=== PATIENT | male | born 1960 | race Caucasian/White ===

== ENCOUNTER 2017-10-23 16:03 | Emergency (ER) | payer OTHER ==
[~2017-10-23] VITALS: Ht 175.3 cm; Wt 82.5 kg
[2017-10-23 16:17] VITALS: Ht 175.3 cm; Wt 82.5 kg
[2017-10-23 20:11] VITALS: BP 174/89
== END 2017-10-23 20:11 | disposition home or self-care (01) ==
LOC: ED 16:03
DX: L02.413 Cutaneous abscess of right upper limb (principal); I10 Essential (primary) hypertension
CPT/HCPCS: J3010; J3490; Q0162

== ENCOUNTER 2019-01-23 15:56 | Emergency (ER) | payer OTHER ==
[~2019-01-23] VITALS: Ht 175.3 cm; Wt 84.8 kg
[2019-01-23 16:13] VITALS: Ht 175.3 cm; Wt 84.8 kg
[2019-01-23 18:09] LABS: BASOPHIL % 0.8 % (0-2)
[2019-01-23 18:12] LABS: PLATELET COUNT 101 x10^3mcL (130-400)
[2019-01-23 18:17] LABS: CARBON DIOXIDE 27.1 mmol/L (21-32); CHLORIDE SERUM 99 mmol/L (98-107); CREATININE SERUM 0.6 mg/dL (0.7-1.3); GFR1 > 60 mL/min; GLUCOSE SERUM 90 mg/dL (74-106); POTASSIUM SERUM 3.3 mmol/L (3.5-5.1); SODIUM SERUM 132 mmol/L (136-145)
[2019-01-23 18:22] LABS: ALBUMIN 1.9 g/dL (3.4-5.0); ALKALINE PHOSPHATASE 185 U/L (46-116); ALT/SGPT 38 U/L (16-63); BILIRUBIN TOTAL 2.48 mg/dL (0.20-1.00); TOTAL PROTEIN, SERUM 9.5 g/dL (6.4-8.2)
[2019-01-23 18:35] LABS: AST/SGOT 107 U/L (15-37)
[2019-01-23 19:34] VITALS: BP 148/92
== END 2019-01-23 19:34 | disposition home or self-care (01) ==
LOC: ED 15:56
PROVIDERS: Emergency Medicine
DX: S81.801A Unspecified open wound, right lower leg, initial encounter (principal); D64.9 Anemia, unspecified; I10 Essential (primary) hypertension; X58.XXXA Exposure to other specified factors, initial encounter; Y93.89 Activity, other specified; Y92.89 Other specified places as the place of occurrence of the external cause; Y99.8 Other external cause status
CPT/HCPCS: J2543; Q0092